=== PATIENT | male | born 1970 | race Caucasian/White ===

== ENCOUNTER 2017-07-05 22:05 | Emergency (ER) | payer OTHER ==
[2017-07-05] MEDS ORDERED: Ondansetron ODT 4 MG TAB ONE (22:33)
[2017-07-05] MEDS ORDERED: HYDROcodone/Acetaminophen 10/325 mg Tablet ONE (22:33)
[2017-07-05] MEDS ORDERED: Naproxen 500 MG TAB ONE (22:33)
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
== END 2017-07-05 23:25 | disposition home or self-care (01) ==
LOC: MADERS 22:05
DX: S00.12XA Contusion of left eyelid and periocular area, initial encounter (principal); I10 Essential (primary) hypertension; Z79.899 Other long term (current) drug therapy; Y04.8XXA Assault by other bodily force, initial encounter
CPT/HCPCS: 70450; 70486; Q0162